=== PATIENT | female | born 1975 | race Caucasian/White ===

== ENCOUNTER 2018-06-26 09:04 | Emergency (ER) | payer OTHER ==
[~2018-06-26] VITALS: Ht 147.3 cm; Wt 90.9 kg
[2018-06-26 09:10] VITALS: TEMP 98
[2018-06-26] MEDS ORDERED: ZOLOFT 50MG50 MG PO (09:29)
[2018-06-26 09:55] LABS: BASO % 0.5 % (0.0-2.0); EOS # 0.1 (0.0-0.7); EOS % 1.8 % (0-4.0); GRAN # 5.7 (1.4-6.5); GRAN % 71.2 % (42.2-75.2); LYMPH # 1.6 (1.2-3.4); LYMPH % 20.2 % (20.0-51.0); MEAN CELL VOLUME 87 fl (80.0-100.0); MEAN CORPUSCULAR HEMOGLOBIN 29 pg (27.0-31.0); MEAN CORPUSCULAR HGB CONC 33 g/dl (33.0-37.0); MEAN PLATELET VOLUME 11.5 fl (7.4-10.4); MONO # 0.5 (0.1-0.6); PLATELET COUNT 222 K/mm3 (130-400)
[2018-06-26 10:05] LABS: ALANINE AMINOTRANSFERASE 24 U/L (9-52); ALBUMIN 3.9 gm/dL (3.5-5.0); ALKALINE PHOSPHATASE 94 U/L (50-136); ANION GAP 6 mmol/L (7-16); AST,SGOT 20 U/L (15-37); BILIRUBIN,TOTAL 0.2 mg/dL (0.0-1.0); BLOOD UREA NITROGEN 18 mg/dL (7-17); CALCIUM 9.1 mg/dL (8.4-10.2); CARBON DIOXIDE 27 mmol/L (22-30); CHLORIDE 107 mmol/L (98-107); CREATININE, serum 0.58 mg/dL (0.52-1.25); GLUCOSE 102 mg/dL (74-106); POTASSIUM 4.3 mmol/L (3.4-5.0); SODIUM 140 mmol/L (137-145)
[2018-06-26 10:06] LABS: HEMATOCRIT 36.6 % (37.0-47.0)
[2018-06-26 10:16] LABS: TROPONIN-I < 0.012 ng/mL (0.000-0.035)
[2018-06-26] MEDS ORDERED: PREDNISONE20 MG PO (10:36)
[2018-06-26] MEDS ORDERED: AMOXICILLIN 8751 TAB PO (10:36)
[2018-06-26 10:42] VITALS: BP 111/75; PULSE 86
== END 2018-06-26 10:47 | disposition home or self-care (01) ==
LOC: COL.ER 09:04
PROVIDERS: Physician Assistant
DX: J45.901 Unspecified asthma with (acute) exacerbation (principal); J32.9 Chronic sinusitis, unspecified; Z90.49 Acquired absence of other specified parts of digestive tract; Z90.710 Acquired absence of both cervix and uterus; Z98.890 Other specified postprocedural states
CPT/HCPCS: J7512

== ENCOUNTER → 2020-05-31 | Emergency (ER) | payer OTHER ==
[~2020-05-31] VITALS: Ht 147.3 cm; Wt 79.5 kg
[~2020-05-31] MED LIST: AMOXICILLIN 8751 TAB PO; PREDNISONE20 MG PO; TRAVEL SICKNESS25 MG PO; ZOFRAN ODT4 MG PO; ZOLOFT 50MG50 MG PO
[2020-05-31 10:00] VITALS: BP 139/82; PULSE 82; TEMP 97.8
[2020-05-31 10:43] LABS: BASO % 0.2 % (0.0-2.0); EOS % 0.5 % (0-4.0); GRAN # 6.4 (1.4-6.5); GRAN % 75.9 % (42.2-75.2); HEMATOCRIT 37.8 % (37.0-47.0); HEMOGLOBIN 12.3 g/dl (12.5-16.0); LYMPH # 1.5 (1.2-3.4); LYMPH % 17.3 % (20.0-51.0); MEAN CELL VOLUME 85 fl (80.0-100.0); MEAN CORPUSCULAR HEMOGLOBIN 28 pg (27.0-31.0); MEAN CORPUSCULAR HGB CONC 33 g/dl (33.0-37.0); MEAN PLATELET VOLUME 11.5 fl (7.4-10.4); MONO # 0.5 (0.1-0.6); MONO % 5.9 % (1.7-9.3); PLATELET COUNT 256 K/mm3 (130-400); RED BLOOD COUNT 4.43 M/mm3 (4.10-5.30); REDCELL DISTRIBUTION WIDTH-CV 14.6 % (11.5-14.5)
[2020-05-31 10:55] LABS: BILIRUBIN,TOTAL 0.5 mg/dL (0.0-1.0); CALCIUM 9.2 mg/dL (8.4-10.2); CREATININE, serum 0.56 (0.52-1.25); POTASSIUM 3.5 mmol/L (3.4-5.0); TOTAL PROTEIN 6.9 gm/dL (6.4-8.2)
[2020-05-31 12:39] LABS: COLLECTION METHOD CLEAN CATCH
[2020-05-31 12:47] LABS: MUCOUS Present /lpf; PH 6 (5-8); SQUAMOUS EPITHELIAL 0-2 /hpf; URINE APPEARANCE Hazy; URINE BACTERIA None Seen /hpf; URINE BILIRUBIN Negative (NEGATIVE); URINE BLOOD Negative (NEGATIVE); URINE COLOR Yellow; URINE GLUCOSE Negative (NEGATIVE); URINE KETONE 1+ (NEGATIVE); URINE LEUKOCYTE ESTERASE Negative (NEGATIVE); URINE NITRATE Negative (NEGATIVE); URINE PROTEIN(semi-quant) Negative (NEGATIVE); URINE RBC 0-2 /hpf; URINE UROBILINOGEN Negative (NEGATIVE)
== END ==
LOC: COL.ER 09:56
PROVIDERS: Physician Assistant
DX: H81.10 Benign paroxysmal vertigo, unspecified ear (principal); F32.9 Major depressive disorder, single episode, unspecified; J45.909 Unspecified asthma, uncomplicated; Z79.52 Long term (current) use of systemic steroids
CPT/HCPCS: J1885; J2405; J2550; J7030

== ENCOUNTER 2022-07-08 11:01 | Emergency (ER) | payer OTHER ==
[~2022-07-08] VITALS: Ht 149.9 cm; Wt 84.1 kg
[2022-07-08 11:29] VITALS: TEMP 98.4
[2022-07-08 12:23] LABS: BASO % 0.3 % (0.0-2.0); EOS # 0.1 K/mm3 (0.0-0.7); EOS % 0.9 % (0.0-4.0); GRAN # 5.4 K/mm3 (1.4-6.5); GRAN % 68.1 % (42.2-75.2); HEMATOCRIT 40.1 % (37.0-47.0); HEMOGLOBIN 12.8 g/dl (12.5-16.0); LYMPH # 1.8 K/mm3 (1.2-3.4); LYMPH % 22.8 % (20.0-51.0); MEAN CELL VOLUME 89 fl (80.0-100.0); MEAN CORPUSCULAR HEMOGLOBIN 28 pg (27-31); MEAN CORPUSCULAR HGB CONC 32 g/dl (33.0-37.0); MEAN PLATELET VOLUME 11.4 fl (7.4-10.4); MONO # 0.6 K/mm3 (0.1-0.6); MONO % 7.4 % (1.7-9.3); PLATELET COUNT 212 K/mm3 (130-400); REDCELL DISTRIBUTION WIDTH-CV 13.9 % (11.5-14.5)
[2022-07-08 12:39] LABS: ALBUMIN 3.7 gm/dL (3.5-5.0); BILIRUBIN,TOTAL 0.2 mg/dL (0.2-1.2); CREATININE, serum 0.72 mg/dL (0.57-1.11); POTASSIUM 3.7 mmol/L (3.5-4.5); TOTAL PROTEIN 6.9 gm/dL (6.2-8.1)
[2022-07-08 14:56] VITALS: BP 111/78; PULSE 98
== END 2022-07-08 14:56 | disposition home or self-care (01) ==
LOC: COL.ER 11:01
PROVIDERS: Nurse Practitioner Primary Care
DX: R51.9 Headache, unspecified (principal); I10 Essential (primary) hypertension; Z28.310 Unvaccinated for COVID-19
CPT/HCPCS: J0780; J1200; J1885; Q9967

== ENCOUNTER 2022-07-28 15:20 | Emergency (ER) | payer OTHER ==
[~2022-07-28] VITALS: Ht 149.9 cm; Wt 88.6 kg
[2022-07-28 16:13] LABS: HEMATOCRIT 38.1 % (37.0-47.0); HEMOGLOBIN 12.5 g/dl (12.5-16.0); MEAN CELL VOLUME 86 fl (80.0-100.0); MEAN CORPUSCULAR HEMOGLOBIN 28 pg (27-31); MEAN CORPUSCULAR HGB CONC 33 g/dl (33.0-37.0); MEAN PLATELET VOLUME 10.3 fl (7.4-10.4); PLATELET COUNT 393 K/mm3 (130-400); RED BLOOD COUNT 4.45 M/mm3 (4.10-5.30); REDCELL DISTRIBUTION WIDTH-CV 13.4 % (11.5-14.5)
[2022-07-28 17:12] LABS: ALBUMIN 3.6 gm/dL (3.5-5.0); BILIRUBIN,TOTAL 0.2 mg/dL (0.2-1.2); CALCIUM 8.8 mg/dL (8.4-10.2); CREATININE, serum 0.73 mg/dL (0.57-1.11); POTASSIUM 3.8 mmol/L (3.5-4.5); TOTAL PROTEIN 6.9 gm/dL (6.2-8.1)
[2022-07-28 17:15] LABS: BAND 4 % (0-10); LYMPHOCYTE 12 % (20.0-51.0); METAMYELOCYTE 3 % (0-0); NEUTROPHILS 81 % (42.0-75.2)
[2022-07-28 17:16] LABS: HYPOCHROMIA 1+; PLATELET ESTIMATE NORMAL (NORMAL)
[2022-07-28] MEDS ORDERED: PREDNISONE10 MG PO (17:59)
[2022-07-28 18:20] VITALS: BP 134/88; PULSE 66; TEMP 98.2
== END 2022-07-28 18:20 | disposition home or self-care (01) ==
LOC: COL.ER 15:20
PROVIDERS: Personal Emergency Response Attendant
DX: J45.901 Unspecified asthma with (acute) exacerbation (principal); Z79.51 Long term (current) use of inhaled steroids; Z28.310 Unvaccinated for COVID-19
CPT/HCPCS: J2060; J2930; J7030

== ENCOUNTER → 2022-10-23 | Outpatient (CLI) | payer OTHER ==
[~2022-10-23] MED LIST changes: +PREDNISONE10 MG PO
== END ==
LOC: COL.PUL 09-18 11:40
DX: R06.02 Shortness of breath (principal)

== ENCOUNTER → 2022-11-05 | Outpatient (CLI) | payer OTHER ==
[~2022-11-05] MED LIST changes: +Albuterol 0.083% Neb Soln 2.5 MG/3 ML UD IH ONE; +Methacholine Vial A (Clear Label Base-Cntrl) IH ONE; +Methacholine Vial B (Red Label) 0.0625 MG/ML 3 ML VIAL.NEB IH ONE; +Methacholine Vial C (Orange Label) 0.25 MG/ML 3 ML VIAL.NEB IH ONE
== END ==
LOC: COL.PUL 10:00
DX: R06.02 Shortness of breath (principal)
CPT/HCPCS: J7674

== ENCOUNTER 2024-02-23 21:28 | Emergency (ER) | payer OTHER ==
[~2024-02-23] VITALS: Ht 149.9 cm; Wt 68.2 kg
[~2024-02-23 21:28] MED LIST changes: -Albuterol 0.083% Neb Soln 2.5 MG/3 ML UD IH ONE; -Methacholine Vial A (Clear Label Base-Cntrl) IH ONE; -Methacholine Vial B (Red Label) 0.0625 MG/ML 3 ML VIAL.NEB IH ONE; -Methacholine Vial C (Orange Label) 0.25 MG/ML 3 ML VIAL.NEB IH ONE
[2024-02-23 21:43] VITALS: TEMP 98.5
[2024-02-23 21:50] VITALS: O2SAT 99
[2024-02-23] MEDS ORDERED: NS 1,000 ML IV ONE (22:15)
[2024-02-23 22:37] LABS: BASO % 0.4 % (0.0-2.0); EOS # 0.2 K/mm3 (0.0-0.7); EOS % 2.1 % (0.0-4.0); GRAN # 4.5 K/mm3 (1.4-6.5); GRAN % 56.3 % (42.2-75.2); HEMATOCRIT 39.9 % (37.0-47.0); HEMOGLOBIN 13.2 g/dl (12.5-16.0); LYMPH # 2.7 K/mm3 (1.2-3.4); LYMPH % 34.1 % (20.0-51.0); MEAN CELL VOLUME 93 fl (80.0-100.0); MEAN CORPUSCULAR HEMOGLOBIN 31 pg (27-31); MEAN CORPUSCULAR HGB CONC 33 g/dl (33.0-37.0); MEAN PLATELET VOLUME 11.8 fl (7.4-10.4); MONO # 0.5 K/mm3 (0.1-0.6); MONO % 6.8 % (1.7-9.3); PLATELET COUNT 215 K/mm3 (130-400); RED BLOOD COUNT 4.28 M/mm3 (4.10-5.30); REDCELL DISTRIBUTION WIDTH-CV 12.8 % (11.5-14.5)
[2024-02-23 22:40] LABS: ALBUMIN 3.6 g/dL (3.5-5.0); BILIRUBIN,TOTAL 0.2 mg/dL (0.2-1.2); CALCIUM 9.4 mg/dL (8.4-10.2); CREATININE, serum 0.72 mg/dL (0.57-1.11); POTASSIUM 3.5 mEq/L (3.5-4.5); TOTAL PROTEIN 6.5 g/dl (6.2-8.1)
[2024-02-23 22:46] LABS: TROPONIN-I 0.015 ng/mL (0.00-0.033)
[2024-02-23 23:39] VITALS: BP 144/96; PULSE 87
== END 2024-02-23 23:45 | disposition home or self-care (01) ==
LOC: COL.ER 21:28
PROVIDERS: Physician Assistant
DX: R07.89 Other chest pain (principal); Z87.891 Personal history of nicotine dependence; Z98.84 Bariatric surgery status
CPT/HCPCS: J7030